=== PATIENT | male | born 1985 | race Two or more races ===

== ENCOUNTER 2022-06-18 16:40 | Emergency (ER) | payer OTHER ==
[~2022-06-18] VITALS: Ht 180.3 cm; Wt 87.5 kg
--- NOTE | 2022-06-18 16:40 | NUR ---
RECEIVED PT 36 YRS MALE CAME FROM WORK BY [employer] WAS HANDINING HAVEA BOX WITH SEVER BACK PAIN NO WEEKNESS DINEESS NUBNESS MOVING ALL EXTRAMIT
--- NOTE | 2022-06-18 17:00 | NUR ---
SEEN BY DR. PATEL
[2022-06-18] MEDS ORDERED: KETOROLAC TROMETHAMINE INJ 30 MG/ML VIAL ONE (17:45)
[2022-06-18] MEDS ORDERED: CYCLOBENZAPRINE 10 MG TABLET ONE (17:45)
[2022-06-18] MEDS ORDERED: CYCLOBENZAPRINE 10 MG TABLET PO ONE (18:00)
[2022-06-18] MEDS ORDERED: KETOROLAC TROMETHAMINE INJ 60 MG/2 ML VIAL IM ONE (18:00)
--- NOTE | 2022-06-18 18:00 | NUR ---
PT STILL UNBLE TO MOVE HIS
[2022-06-18] MEDS ORDERED: DIAZEPAM 5 MG TABLET ONE (18:51)
[2022-06-18] MEDS ORDERED: MORPHINE SULFATE INJ 2 MG/ML DISP.SYRIN ONE (18:52)
[2022-06-18] MEDS ORDERED: MORPHINE SULFATE INJ 2 MG/ML DISP.SYRIN IM ONE (19:00)
[2022-06-18] MEDS ORDERED: DIAZEPAM 5 MG TABLET PO ONE (19:00)
--- NOTE | 2022-06-18 19:35 | NUR ---
HAND OFF KENAN ROMERO
[2022-06-18] MEDS ORDERED: CYCL5TAB PO ×2 (21:08→21:11)
--- NOTE | 2022-06-18 21:23 | NUR ---
Patient discharged to home in stable condition. Written and verbal after care instructions given. Patient verbalizes understanding of instruction.
[2022-06-18 21:27] VITALS: BP 121/75
== END 2022-06-18 21:28 | disposition home or self-care (01) ==
LOC: ER 16:52
DX: M54.50 Low back pain, unspecified (principal); Z60.2 Problems related to living alone
CPT/HCPCS: 99284; 96372 ×2; J1885; J2270